=== PATIENT | female | born 1955 | race Caucasian/White ===

== ENCOUNTER → 2021-01-01 | Outpatient (CLI) | payer OTHER ==
[~2021-01-01] MED LIST: ALLERGY RELIEF10 M1 PO; BUTALBITAL-ACE1 EAC3 PO; CENTURY ADULTS1 EACH PO; CLINDAMYCIN HC300 MG PO; DEPAKOTE500 MG PO; DICLOFENAC GEL TOP; ECOTRIN325 MG PO; GOODY'S EX-STR1 EAC1 PO; HYDROCODON-ACE1 EAC2 PO; IBU800 MG PO; KLONOPIN1 MG PO; LORTAB 7.5-3251 EACH PO; LOVENOX SY40 MG/0.4 SC; LOW DOSE ASPIRI81 MG PO; NEURONTIN800 MG PO; PERCOCET 10-321 EACH PO; PRADAXA150 MG PO; PREMARIN1.25 MG PO; PROMETHAZINE HC25 M1 PO; PROTONIX 40 MG40 M1 PO; PROZAC40 MG PO; REMERON30 MG PO; ROPINIROLE HCL1 MG PO; SYNTHROID112 MCG PO; VITAMIN B-121000 MC3 PO; VITAMIN C500 M1 PO; VITAMIN E200 UNI3 PO; XARELTO20 MG PO; ZOFRAN4 MG PO; ZYRTEC10 M3 PO
== END ==
LOC: EMI 09:40
DX: M79.671 Pain in right foot (principal); G89.29 Other chronic pain
CPT/HCPCS: 73718